=== PATIENT | female | born 1945 | race African-American/Black ===

== ENCOUNTER 2025-06-26 11:27 | Inpatient (IN) | payer MEDICARE ==
[~2025-06-26] VITALS: Ht 167.6 cm; Wt 81.6 kg
[2025-06-26 12:20] LABS: PLATELET COUNT (AUTO) 215 K/uL (150-450); RED BLOOD CELL COUNT(AUTO) 3.33 MIL/uL (4.0-5.2); RED CELL DISTRIBUTION WIDTH 17.2 % (11.5-15.0); WHITE BLOOD COUNT (AUTO) 3.9 K/uL (4.3-11.0)
[2025-06-26] MEDS: IV NS 0.9% 500 ML BAG IV ONE (12:35)
[2025-06-26] MEDS: IV NS 0.9% 500 ML IV ONE (12:37)
[2025-06-26] MEDS ORDERED: OLAN5TAB3 PO (12:45)
[2025-06-26] MEDS ORDERED: BISA5TAB10 PO (12:45)
[2025-06-26] MEDS ORDERED: TRAZ-182 PO (12:45)
[2025-06-26] MEDS ORDERED: LORA-259 PO (12:45)
[2025-06-26] MEDS ORDERED: AMLO-212 PO (12:45)
[2025-06-26] MEDS ORDERED: ACET-73 PO (12:45)
[2025-06-26 12:47] LABS: CALCIUM, SERUM 9.4 mg/dL (8.5-10.1); CREATININE 1.1 mg/dL (0.6-1.3); SODIUM SERUM 140.0 mmol/L (136-145); UREA NITROGEN, BLOOD 30.0 mg/dL (7-18)
[2025-06-26 12:52] LABS: ASPARTATE AMINOTRANSFERASE 21.0 U/L (15-37); TOTAL PROTEIN, SERUM 8.6 g/dL (6.4-8.2)
[2025-06-26 13:26] LABS: APPEARANCE,URINE CLEAR (CLEAR); BLOOD, URINE NEGATIVE Ery/uL (NEGATIVE); LEUKOCYTE ESTERASE ,URINE TRACE (NEGATIVE); NITRITE, URINE POSITIVE (NEGATIVE); UGLUCOSE NEGATIVE (NEGATIVE)
[2025-06-26 13:30] VITALS: O2SAT 98
[2025-06-26 13:32] LABS: ADD URINE CULTURE YES; SQUAMOUS EPITHELIAL CELL,UR Rare /HPF (None Seen)
[2025-06-26] MEDS ORDERED: CEFTRIAXONE 1GM BAG (ER ONLY) 50 ML IV ONE (14:00)
[2025-06-26] MEDS: CEFTRIAXONE 1GM BAG (ER ONLY) 1 GM/50 ML PIGGYBACK IV ONE (14:02)
[2025-06-26] MEDS ORDERED: IV NS 0.9% 250 ML IV ONE (14:34)
[2025-06-26] MEDS ORDERED: IOHEXOL-350 100 ML VIAL IV ONE (14:34)
[2025-06-26 16:00] VITALS: BP 157/99; TEMP 97.5; O2SAT 97
[2025-06-26] MEDS ORDERED: ACETAMINOPHEN 325 MG TABLET PO PRN (17:30)
[2025-06-26] MEDS ORDERED: ONDANSETRON HCL/PF 4 MG/2 ML VIAL IVP PRN (17:30)
[2025-06-26] MEDS ORDERED: Z GUARD REMEDY 4 OZ OINT TP PRN (17:30)
[2025-06-26] MEDS ORDERED: LORAZEPAM 1 MG TABLET PO PRN (18:00)
[2025-06-26] MEDS: OLANZAPINE 5 MG TABLET PO SCH (21:24)
[2025-06-26] MEDS: TRAZODONE 50 MG TABLET PO SCH (21:24)
[2025-06-26 22:08] VITALS: BP 143/75; TEMP 97.9; O2SAT 98
[2025-06-27 06:51] LABS: PLATELET COUNT (AUTO) 180 K/uL (150-450); RED BLOOD CELL COUNT(AUTO) 3.44 MIL/uL (4.0-5.2); RED CELL DISTRIBUTION WIDTH 17.5 % (11.5-15.0); WHITE BLOOD COUNT (AUTO) 2.5 K/uL (4.3-11.0)
[2025-06-27 07:11] LABS: CALCIUM, SERUM 9.2 mg/dL (8.5-10.1); CREATININE 0.8 mg/dL (0.6-1.3); PHOSPHORUS 3.1 mg/dL (2.5-4.9); SODIUM SERUM 139.0 mmol/L (136-145); UREA NITROGEN, BLOOD 20.0 mg/dL (7-18)
[2025-06-27] MEDS: PANTOPRAZOLE 40 MG TABLET.DR PO SCH (08:58)
[2025-06-27 08:59] VITALS: BP 160/76
[2025-06-27] MEDS: AMLODIPINE BESYLATE 5 MG TABLET PO SCH (08:59)
[2025-06-27] MEDS: BISACODYL (5 MG) 5 MG TABLET.DR PO SCH (08:59)
[2025-06-27] MEDS: CEFTRIAXONE 1 G in IV D5W 50 ML IV SCH (13:43)
[2025-06-27] MEDS: THERAHONEY GEL 1.5 OZ TUBE TP SCH (16:03)
[2025-06-27] MEDS ORDERED: CEPH-570 PO (16:35)
[2025-06-27] MEDS ORDERED: COLL30OI TP (16:35)
== END 2025-06-27 17:00 | DRG 690 ==
LOC: ER 11:34 → MED 13:45
PROVIDERS: ADMIT Nurse Practitioner Acute Care; ATTEND Nurse Practitioner Acute Care
DX: N39.0 Urinary tract infection, site not specified (principal); L03.116 Cellulitis of left lower limb; F02.818 Dementia in other diseases classified elsewhere, unspecified severity, with other behavioral disturbance; L97.829 Non-pressure chronic ulcer of other part of left lower leg with unspecified severity; G30.9 Alzheimer's disease, unspecified; B35.1 Tinea unguium; I10 Essential (primary) hypertension; F32.A Depression, unspecified; J45.909 Unspecified asthma, uncomplicated; F02.84 Dementia in other diseases classified elsewhere, unspecified severity, with anxiety; K57.30 Diverticulosis of large intestine without perforation or abscess without bleeding; F41.9 Anxiety disorder, unspecified; Z88.0 Allergy status to penicillin; Z79.899 Other long term (current) drug therapy; Z87.42 Personal history of other diseases of the female genital tract; Z87.440 Personal history of urinary (tract) infections; K59.00 Constipation, unspecified; M19.90 Unspecified osteoarthritis, unspecified site; Z90.710 Acquired absence of both cervix and uterus; Z87.891 Personal history of nicotine dependence; Z80.0 Family history of malignant neoplasm of digestive organs; Z82.49 Family history of ischemic heart disease and other diseases of the circulatory system; I87.2 Venous insufficiency (chronic) (peripheral)
CPT/HCPCS: 36415; 74178; 80048-TC; 80076-TC; 81001; 83735-TC; 84100-TC; 85025-TC; 87081-TC; 87086-TC; 97110-TC; 97116-TC; 97530-TC; 97535-TC; A4223; A6254; G0378; J0696; J7030; J7050; J7060; Q9967